=== PATIENT | male | born 1945 | race Native Hawaiian/Other Pacific Islander ===

== ENCOUNTER 2019-07-04 08:47 | Outpatient (CLI) | payer OTHER | END 2019-07-04 19:03 | disposition home or self-care (01) | LOC: RAD 08:47 | DX: M54.89 Other dorsalgia (principal) ==

== ENCOUNTER 2019-10-16 06:53 | Outpatient (CLI) | payer OTHER | END 2019-10-16 22:04 | disposition home or self-care (01) | LOC: LABW 06:53 | DX: R53.83 Other fatigue (principal) | CPT/HCPCS: 36415; 84402; 84403 ==

== ENCOUNTER 2021-11-06 17:52 | Emergency (ER) | payer OTHER ==
[~2021-11-06] VITALS: Ht 180.3 cm; Wt 74.8 kg
[2021-11-06 18:45] LABS: POTASSIUM 3.7 mmol/L (3.6-5.2)
[2021-11-06 18:48] LABS: PLATELET COUNT 117 K/uL (142-355)
[2021-11-06 23:45] VITALS: BP 111/62
== END 2021-11-06 23:45 | disposition still patient (30) ==
LOC: ED 17:52
PROVIDERS: Emergency Medicine
DX: E86.0 Dehydration (principal); D72.818 Other decreased white blood cell count; J18.9 Pneumonia, unspecified organism; C34.92 Malignant neoplasm of unspecified part of left bronchus or lung; C34.91 Malignant neoplasm of unspecified part of right bronchus or lung; Z79.899 Other long term (current) drug therapy; R06.02 Shortness of breath
CPT/HCPCS: 36415; 80053; 81000; 84484; 85027; 85610; 93005; 96360; 96361; 96365; 96366; 96375; 99284; J1956; J2405

== ENCOUNTER 2022-01-18 05:43 | Emergency (ER) | payer OTHER ==
[~2022-01-18] VITALS: Ht 180.3 cm; Wt 74.8 kg
[2022-01-18 05:43] VITALS: BP 255/102
== END 2022-01-18 07:34 | disposition expired ==
LOC: ED 05:48
PROC: 5A1221J Performance of Cardiac Output, Continuous, Automated (ICD-10-PCS; principal; 2022-01-18)
DX: I46.9 Cardiac arrest, cause unspecified (principal)
CPT/HCPCS: 82948; 92950; 96374; 99285; J0171